=== PATIENT | male | born 1950 | race Asian ===

== ENCOUNTER 2022-04-22 22:10 | Inpatient (IN) | payer MEDICARE, OTHER ==
[~2022-04-22] VITALS: Ht 157.5 cm; Wt 62.1 kg
[2022-04-22 23:38] LABS: HEMATOCRIT 34.6 % (36.7-47.1); MEAN CORPUSCULAR HEMOGLOBIN 30.8 uug (23.8-33.4); MEAN CORPUSCULAR VOLUME 89.8 fL (73.0-96.2); PLATELET COUNT (AUTO) 96 K/uL (152-348)
[2022-04-22 23:44] LABS: CARBON DIOXIDE 31 mmol/L (21-32); CHLORIDE 103 mmol/L (98-107); CREATININE 1.2 mg/dL (0.6-1.3); GLUCOSE 96 mg/dL (74-106); POTASSIUM 4.1 mmol/L (3.5-5.1); UREA NITROGEN, BLOOD 14 mg/dL (7-18)
[2022-04-23] MEDS ORDERED: BISA10SU61 RC
[2022-04-23] MEDS ORDERED: NA P133E RC
[2022-04-23] MEDS ORDERED: SENN-261 PO
[2022-04-23] MEDS ORDERED: GABA-532 PO
[2022-04-23] MEDS ORDERED: LEVE100S PO
[2022-04-23] MEDS ORDERED: MAG-151 PO
[2022-04-23] MEDS ORDERED: CLON0.1T PO
[2022-04-23] MEDS ORDERED: DEXT15DR6 OP
[2022-04-23] MEDS ORDERED: TRAM50TA2 PO
[2022-04-23] MEDS ORDERED: DOXA4TAB3 PO
[2022-04-23] MEDS ORDERED: CARV3.122 PO
[2022-04-23] MEDS ORDERED: ESCI5TAB PO
[2022-04-23] MEDS ORDERED: MULT-213 PO
[2022-04-23] MEDS ORDERED: OXYB5TAB16 PO
[2022-04-23] MEDS ORDERED: QUET25TA PO
[2022-04-23] MEDS ORDERED: PRAV20TA4 PO
[2022-04-23] MEDS ORDERED: FINA5TAB11 PO
[2022-04-23] MEDS ORDERED: OLAN2.5T3 PO
[2022-04-23] MEDS ORDERED: VALP250S3 PO
[2022-04-23] MEDS ORDERED: PANT40TA49 PO
[2022-04-23] MEDS ORDERED: ACET-2154 PO
[2022-04-23] MEDS ORDERED: AMLO-212 PO
[2022-04-23] MEDS ORDERED: MELA3TAB41 PO
[2022-04-23] MEDS ORDERED: MELO-105 PO
--- NOTE | 2022-04-23 00:15 | NUR ---
PATIENT HAS BEEN MEDICALLY CLEARED BY DR BENNETT
--- NOTE | 2022-04-23 00:26 | NUR ---
CALLED DIRECTOR COUNSELING BUREAU ART FOR PSYCH EVAL
--- NOTE | 2022-04-23 02:06 | NUR ---
Report given to U
--- NOTE | 2022-04-23 02:51 | NUR ---
Transferred patient to MHU via stretcher PORSHA Sprague made aware of patient's arrival.
[2022-04-23 03:00] VITALS: BP 129/81
--- NOTE | 2022-04-23 03:42 | NUR ---
Admission Notes: Received 72 y/o male patient via ER staff on gurney @ 0245 hours. Pt was admitted on a 5150 d/t being gravely disabled. Pt came from [facility] d/t increased agitation, paranoia, and non-compliant behavior. Upon face to face assessment, pt is AOx2, somewhat confused, mainly speaks Spanish, and overall compliant. Translation is needed. Pt is x1 assist with ambulation and ADL's. Pt was given snacks and able to feed himself. Pt was oriented to the unit, was given his advisement, placed in his patient's handbook, left on his bedside table. Pt will be followed via Zandra and Elsy.
[2022-04-23] MEDS ORDERED: MAG HYDROX/AL HYDROX/SIMETH 30 ML LIQUID UDC PO PRN (03:45)
[2022-04-23] MEDS ORDERED: MAGNESIUM HYDROXIDE 30 ML LIQUID UDC PO PRN (03:45)
[2022-04-23 07:30] VITALS: BP 136/77
[2022-04-23] MEDS: GABAPENTIN 300 MG CAPSULE PO SCH ×3 (09:18→17:32)
[2022-04-23] MEDS: OLANZAPINE ZYDIS 5 MG TAB.RAPDIS PO SCH ×2 (09:18→20:51)
[2022-04-23] MEDS: DIVALPROEX SPRINKLE 125 MG CAP.SPRINK PO SCH ×3 (09:26→17:32)
[2022-04-23] MEDS ORDERED: [UNRECOGNIZED DRUG - OTHER] PO PRN (11:30)
[2022-04-23] MEDS ORDERED: CLONIDINE HCL 0.1 MG TABLET PO PRN (11:30)
[2022-04-23] MEDS ORDERED: SIMETHICONE PO PRN (11:30)
[2022-04-23] MEDS ORDERED: MAGNESIUM HYDROXIDE PO PRN (11:30)
[2022-04-23] MEDS ORDERED: ALUMINUM HYDROXIDE PO PRN (11:30)
[2022-04-23] MEDS ORDERED: BISACODYL 10 MG SUPP.RECT RC PRN (11:30)
[2022-04-23] MEDS ORDERED: VALPROIC ACID 250 MG/5 ML LIQUID UDC PO SCH (11:43)
[2022-04-23] MEDS: levETIRAcetam 500 MG TABLET PO SCH ×2 (12:42→20:52)
[2022-04-23] MEDS: AMLODIPINE 5 MG TABLET PO SCH ×2 (12:42→20:51)
[2022-04-23] MEDS ORDERED: GABAPENTIN 100 MG CAPSULE PO SCH (13:00)
[2022-04-23 16:00] VITALS: BP 132/79
[2022-04-23] MEDS ORDERED: levETIRAcetam 500 MG/5 ML LIQUID UDC PO SCH (17:00)
[2022-04-23] MEDS: POLYVINYL ALCOHOL OPHT DROPS 15 ML BOTTLE EACHEYE SCH ×2 (17:00→17:33)
[2022-04-23] MEDS ORDERED: VALPROATE SODIUM PO SCH (17:00)
[2022-04-23] MEDS: CARVEDILOL 3.125 MG TABLET PO SCH (17:33)
--- NOTE | 2022-04-23 20:30 | NUR ---
RECEIVED PATIENT IN HIS ROOM IN BED. HE IS NOTED SLEEPING BUT EASILY AROUSABLE. PATIENT IS A/O X 1/ HE IS CALM UPON APPROACHED. HE IS A POOR HISTORIAN. HE APPEARS DEPRESSED. HE IS ISOLATIVE AND WITHDRAWN BUT HE DENIED SI/HI/AH/VH. ALL HIS NEEDS ARE MET. HE IS ABLE TO AMBULATE WITH THE AID OF A FWW. PATIENT IS REASSURED FOR HER SAFETY. SAFETY AND FALL PRECAUTIONS ARE IN PLACE, BED ALARM ON. HIS V/S ARE STABLE. HE WAS GIVEN PO FLUIDS AND SNACKS. WILL CONTINUE TO MONITOR.
[2022-04-23 20:36] VITALS: BP 122/74
[2022-04-23] MEDS: MELATONIN 3 MG TABLET PO SCH (20:51)
[2022-04-23] MEDS: SENNOSIDES 1 TABLET PO SCH (20:52)
[2022-04-23] MEDS: ATORVASTATIN 10 MG TABLET PO SCH (20:52)
[2022-04-23] MEDS: OXYBUTYNIN CHLORIDE 5 MG TABLET PO SCH (20:52)
[2022-04-23] MEDS: DOXAZOSIN 2 MG TABLET PO SCH (20:53)
[2022-04-23] MEDS ORDERED: MELATONIN 3 MG TABLET PO SCH (21:00)
[2022-04-24] MEDS: PANTOPRAZOLE SODIUM 40 MG TABLET.DR PO SCH (06:49)
[2022-04-24 07:30] VITALS: BP 109/65
[2022-04-24 07:34] LABS: HEMATOCRIT 33.6 % (36.7-47.1); MEAN CORPUSCULAR VOLUME 89.8 fL (73.0-96.2); PLATELET COUNT (AUTO) 96 K/uL (152-348)
[2022-04-24 07:47] LABS: CREATININE 1.3 mg/dL (0.6-1.3); MAGNESIUM 2.3 mg/dL (1.8-2.4); POTASSIUM 4.4 mmol/L (3.5-5.1)
[2022-04-24 07:55] LABS: THYROID STIMULATING HORMONE 2.057 mIU/mL (0.358-3.740)
[2022-04-24] MEDS: CARVEDILOL 3.125 MG TABLET PO SCH ×2 (08:00→17:39)
[2022-04-24] MEDS ORDERED: Medication Not On Formulary EA (Multivitamins W-Minerals (Daily Multivitamin-Minerals) 1 PO SCH (09:00)
[2022-04-24] MEDS ORDERED: MELOXICAM 7.5 MG TABLET PO SCH (09:00)
[2022-04-24] MEDS: POLYVINYL ALCOHOL OPHT DROPS 15 ML BOTTLE EACHEYE SCH ×3 (09:16→17:37)
[2022-04-24] MEDS: levETIRAcetam 500 MG TABLET PO SCH ×2 (09:17→20:14)
[2022-04-24] MEDS: DIVALPROEX SPRINKLE 125 MG CAP.SPRINK PO SCH ×3 (09:17→17:38)
[2022-04-24] MEDS: GABAPENTIN 300 MG CAPSULE PO SCH ×3 (09:17→17:38)
[2022-04-24] MEDS: AMLODIPINE 5 MG TABLET PO SCH ×2 (09:18→21:00)
[2022-04-24] MEDS: MULTIVIT, IRON, MIN NO. 8, FA TABLET PO SCH (09:18)
[2022-04-24] MEDS: FINASTERIDE 5 MG TABLET PO SCH (09:18)
[2022-04-24] MEDS: OLANZAPINE ZYDIS 5 MG TAB.RAPDIS PO SCH ×2 (09:18→20:14)
--- NOTE | 2022-04-24 12:27 | NUR ---
JESUS Initial Discharge Note: Pt currently resides at [facility] nursing [facility] located at [address] [place] [id number] ([phone]). JESUS spoke with Lin in admissions at the facility who stated pt is welcome back upon discharge. JESUS will contact pt's daughter, Kristen to discuss pt's discharge plan. JESUS will continue to work with pt, family and MD to ensure a safe and proper discharge plan.
--- NOTE | 2022-04-24 14:23 | NUR ---
JESUS Family Contact: JESUS spoke with pt's daughter, Kristen ([phone]) regarding pt's treatment and discharge plan to return to [facility] [phone] EXT: (202 for admissions) upon discharge. Kristen is aware and agreeable with the discharge plan. Kristen stated the pt does not have a DPOA or conservator. JESUS provided Kristen with this process description writer's office number for further questions as needed. Kristen was grateful.
[2022-04-24 16:00] VITALS: BP 105/67
--- NOTE | 2022-04-24 16:22 | NUR ---
SHIFT NOTE: RECEIVED REPORT FROM AM NURSE PT IS ALERT AND ORIENTED X 2 PT IS ISOLATIVE IN HIS ROOM NO SIGNS OF RESPIRATORY DISTRESS NOTED. PT IS ISOLATIVE IN ROOM EAT PT ATE 100 PERCENT OF BREAKFAST AND LUNCH. PT UNDERSTANDS SAMI ABLE TO RESPOND BACK IN SIMPLY WORDS. PT IS COMPLIANT WITH ALL OF MEDICATIONS. PT USE HIS FRONT PEGUERO TO BATHROOM SAFETY PRECAUTIONS MAINTAINED. WILL CONTINUE TO MONITOR.
[2022-04-24] MEDS: SENNOSIDES 1 TABLET PO SCH (20:13)
[2022-04-24] MEDS: ATORVASTATIN 10 MG TABLET PO SCH (20:13)
[2022-04-24] MEDS: OXYBUTYNIN CHLORIDE 5 MG TABLET PO SCH (20:14)
[2022-04-24 20:54] VITALS: BP 108/69
[2022-04-24] MEDS: MELATONIN 3 MG TABLET PO SCH (21:00)
[2022-04-24] MEDS: DOXAZOSIN 2 MG TABLET PO SCH (21:00)
[2022-04-25 07:30] VITALS: BP 110/68
[2022-04-25] MEDS: PANTOPRAZOLE SODIUM 40 MG TABLET.DR PO SCH (07:36)
[2022-04-25] MEDS: POLYVINYL ALCOHOL OPHT DROPS 15 ML BOTTLE EACHEYE SCH ×3 (09:05→16:48)
[2022-04-25] MEDS: AMLODIPINE 5 MG TABLET PO SCH ×2 (09:06→20:41)
[2022-04-25] MEDS: GABAPENTIN 300 MG CAPSULE PO SCH ×3 (09:06→16:48)
[2022-04-25] MEDS: MULTIVIT, IRON, MIN NO. 8, FA TABLET PO SCH (09:06)
[2022-04-25] MEDS: FINASTERIDE 5 MG TABLET PO SCH (09:06)
[2022-04-25] MEDS: levETIRAcetam 500 MG TABLET PO SCH ×2 (09:07→20:38)
[2022-04-25] MEDS: OLANZAPINE ZYDIS 5 MG TAB.RAPDIS PO SCH ×2 (09:07→20:38)
[2022-04-25] MEDS: DIVALPROEX SPRINKLE 125 MG CAP.SPRINK PO SCH ×3 (09:07→16:49)
[2022-04-25] MEDS: CARVEDILOL 3.125 MG TABLET PO SCH ×2 (09:08→17:07)
[2022-04-25 16:00] VITALS: BP 116/75
--- NOTE | 2022-04-25 16:23 | NUR ---
Firearms Report: Breaker Machine Tender completed and submitted a [employer] firearms report for 5150 grave disability certifications. A copy of report has been placed in patient chart.
[2022-04-25] MEDS: DOXAZOSIN 2 MG TABLET PO SCH (17:00)
[2022-04-25 20:20] VITALS: BP 120/81
[2022-04-25] MEDS: SENNOSIDES 1 TABLET PO SCH (20:38)
[2022-04-25] MEDS: OXYBUTYNIN CHLORIDE 5 MG TABLET PO SCH (20:38)
[2022-04-25] MEDS: ATORVASTATIN 10 MG TABLET PO SCH (20:39)
[2022-04-25] MEDS: MELATONIN 3 MG TABLET PO SCH (20:40)
[2022-04-26] MEDS: PANTOPRAZOLE SODIUM 40 MG TABLET.DR PO SCH (06:03)
--- NOTE | 2022-04-26 06:21 | NUR ---
Gps: Remain calm and cooperative. compliant with meds. slept 6.30 hrs through the night. resting in bed comfortably. continue plan of care.
[2022-04-26 08:05] VITALS: BP 109/73
[2022-04-26] MEDS: DIVALPROEX SPRINKLE 125 MG CAP.SPRINK PO SCH ×3 (08:35→16:20)
[2022-04-26] MEDS: AMLODIPINE 5 MG TABLET PO SCH ×2 (08:35→21:25)
[2022-04-26] MEDS: GABAPENTIN 300 MG CAPSULE PO SCH ×3 (08:36→16:20)
[2022-04-26] MEDS: FINASTERIDE 5 MG TABLET PO SCH (08:36)
[2022-04-26] MEDS: levETIRAcetam 500 MG TABLET PO SCH ×2 (08:36→21:20)
[2022-04-26] MEDS: MULTIVIT, IRON, MIN NO. 8, FA TABLET PO SCH (08:36)
[2022-04-26] MEDS: CARVEDILOL 3.125 MG TABLET PO SCH ×2 (08:36→17:04)
[2022-04-26] MEDS: OLANZAPINE ZYDIS 5 MG TAB.RAPDIS PO SCH ×2 (08:36→21:20)
[2022-04-26] MEDS: POLYVINYL ALCOHOL OPHT DROPS 15 ML BOTTLE EACHEYE SCH ×3 (08:37→16:21)
--- NOTE | 2022-04-26 13:50 | NUR ---
GPS: Nursing Notes: Thought Disorder: Patient is awake and responding to his name, A/Ox2, needs assistance with ADL's, ambulatory with fww, impaired judgment, confused, gets easily irritable when redirected at times, interactive with staff, isolative and withdrawn in her room, unable to formulate a viable plan for self care, no aggressive behavior noted, continue to be compliant with his medications, continue to monitor for safety, continue with treatment plan.
[2022-04-26 16:26] VITALS: BP 111/66
[2022-04-26 20:00] VITALS: BP 118/74
[2022-04-26] MEDS: DOXAZOSIN 2 MG TABLET PO SCH (21:19)
[2022-04-26] MEDS: SENNOSIDES 1 TABLET PO SCH (21:20)
[2022-04-26] MEDS: MELATONIN 3 MG TABLET PO SCH (21:21)
[2022-04-26] MEDS: OXYBUTYNIN CHLORIDE 5 MG TABLET PO SCH (21:22)
[2022-04-26] MEDS: ATORVASTATIN 10 MG TABLET PO SCH (21:26)
--- NOTE | 2022-04-26 21:30 | NUR ---
RECEIVED PATIENT IN HIS ROOM IN BED. HE IS NOTED SLEEPING BUT EASILY AROUSABLE. PATIENT IS A/O X 1 HE IS CALM AND PLEASANT UPON APPROACHED. HE IS ABLE TO AMBULATE WITH THE AID OF A FWW. PATIENT IS THAI AND HIS IRISH IS LIMITED. PATIENT CONTINUE ISOLATIVE BUT HE DENIED SI/HI/VH/AH. PATIENT IS COMPLIANT WITH MEDICATION REGIMENT DIET AND CARE AT THIS TIME. PATIENT IS REASSURED FOR HIS SAFETY. SAFETY AND FALL PRECAUTIONS ARE IN PLACE. HIS V/S ARE STABLE. HE WAS GIVEN PO FLUIDS AND SNACKS. ALL HIS NEEDS ARE MET. WILL CONTINUE TO MONITOR.
[2022-04-27] MEDS: PANTOPRAZOLE SODIUM 40 MG TABLET.DR PO SCH (06:17)
[2022-04-27 07:57] VITALS: BP 129/76
[2022-04-27] MEDS: levETIRAcetam 500 MG TABLET PO SCH ×2 (08:29→20:40)
[2022-04-27] MEDS: DIVALPROEX SPRINKLE 125 MG CAP.SPRINK PO SCH ×3 (08:29→16:33)
[2022-04-27] MEDS: OLANZAPINE ZYDIS 5 MG TAB.RAPDIS PO SCH ×2 (08:29→20:40)
[2022-04-27] MEDS: MULTIVIT, IRON, MIN NO. 8, FA TABLET PO SCH (08:29)
[2022-04-27] MEDS: FINASTERIDE 5 MG TABLET PO SCH (08:29)
[2022-04-27] MEDS: GABAPENTIN 300 MG CAPSULE PO SCH ×3 (08:29→16:33)
[2022-04-27] MEDS: AMLODIPINE 5 MG TABLET PO SCH ×2 (08:31→20:39)
[2022-04-27] MEDS: CARVEDILOL 3.125 MG TABLET PO SCH ×2 (08:31→17:01)
[2022-04-27] MEDS: POLYVINYL ALCOHOL OPHT DROPS 15 ML BOTTLE EACHEYE SCH ×3 (08:32→16:33)
--- NOTE | 2022-04-27 11:40 | NUR ---
GPS: Nursing Notes: Thought Disorder: Patient is awake and responding to his name, impaired judgment, poor insight, A/Ox1, redirected and reoriented during shift, ambulatory with fww, on fall precautions, needs assistance with ADL's, forgetful, disoriented, unkempt appearance, unable to formulate a viable plan for self care, following staff directions, no aggressive behavior noted, continue to monitor for safety, continue with treatment plan.
[2022-04-27 16:41] VITALS: BP 122/74
[2022-04-27 20:08] VITALS: BP 137/81
[2022-04-27] MEDS: MELATONIN 3 MG TABLET PO SCH (20:39)
[2022-04-27] MEDS: ATORVASTATIN 10 MG TABLET PO SCH (20:39)
[2022-04-27] MEDS: OXYBUTYNIN CHLORIDE 5 MG TABLET PO SCH (20:40)
[2022-04-27] MEDS: SENNOSIDES 1 TABLET PO SCH (20:40)
[2022-04-27] MEDS: DOXAZOSIN 2 MG TABLET PO SCH (20:41)
--- NOTE | 2022-04-27 21:30 | NUR ---
RECEIVED PATIENT IN HIS ROOM IN BED. HE IS NOTED AWAKE. HE IS IS A/O X 1 TO 2 HE IS CALM AND PLEASANT UPON APPROACHED. HE IS ABLE TO AMBULATE WITH THE AID OF A FWW. HE IS LESS ISOLATIVE LESS WITHDRAWN HE WAS OBSERVED GOING TO THE DAY ROOM AND HAVE SOME SNACKS AND WATCH TV. PATIENT IS SLOVAK SPEAKER AND HE IS ABLE TO SPEAK AND UNDERSTAND BASIC SAUDI ARABIAN. HE DENIED SI/HI/VH/AH. PATIENT IS COMPLIANT WITH MEDICATION REGIMENT DIET AND CARE AT THIS TIME. HE WAS OFFERED A SHOWER AND HE SAID "YES". SHOWER WAS PROVIDED. PATIENT IS REASSURED FOR HIS SAFETY. SAFETY AND FALL PRECAUTIONS ARE IN PLACE. HIS V/S ARE STABLE. HE WAS GIVEN PO FLUIDS AND SNACKS. ALL HIS NEEDS ARE MET. WILL CONTINUE TO MONITOR
[2022-04-28] MEDS: PANTOPRAZOLE SODIUM 40 MG TABLET.DR PO SCH (07:02)
[2022-04-28 08:11] VITALS: BP 123/74
[2022-04-28] MEDS: MULTIVIT, IRON, MIN NO. 8, FA TABLET PO SCH (08:16)
[2022-04-28] MEDS: levETIRAcetam 500 MG TABLET PO SCH ×2 (08:16→20:47)
[2022-04-28] MEDS: DIVALPROEX SPRINKLE 125 MG CAP.SPRINK PO SCH ×3 (08:16→17:14)
[2022-04-28] MEDS: FINASTERIDE 5 MG TABLET PO SCH (08:16)
[2022-04-28] MEDS: GABAPENTIN 300 MG CAPSULE PO SCH ×3 (08:16→17:15)
[2022-04-28] MEDS: AMLODIPINE 5 MG TABLET PO SCH ×2 (08:16→20:48)
[2022-04-28] MEDS: OLANZAPINE ZYDIS 5 MG TAB.RAPDIS PO SCH ×2 (08:16→20:47)
[2022-04-28] MEDS: POLYVINYL ALCOHOL OPHT DROPS 15 ML BOTTLE EACHEYE SCH ×3 (08:17→17:16)
[2022-04-28] MEDS: CARVEDILOL 3.125 MG TABLET PO SCH ×2 (08:17→17:15)
[2022-04-28] MEDS: ESCITALOPRAM OXALATE 10 MG TABLET PO SCH (09:07)
--- NOTE | 2022-04-28 16:01 | NUR ---
GPS: Nursing Notes: Thought Disorder: Patient is awake and responding to his name, A/Ox2, forgetful at times, impaired judgment, poor insight, resistant with nursing care at times, needs prompting to participate in therapeutic groups, ambulatory with fww, unable to formulate a viable plan for self care, unkempt appearance, continue to monitor for safety, continue with treatment plan.
[2022-04-28 16:11] VITALS: BP 108/71
[2022-04-28 19:53] VITALS: BP 123/74
[2022-04-28] MEDS: SENNOSIDES 1 TABLET PO SCH (20:46)
[2022-04-28] MEDS: OXYBUTYNIN CHLORIDE 5 MG TABLET PO SCH (20:47)
[2022-04-28] MEDS: DOXAZOSIN 2 MG TABLET PO SCH (20:47)
[2022-04-28] MEDS: ATORVASTATIN 10 MG TABLET PO SCH (20:48)
[2022-04-28] MEDS: MELATONIN 3 MG TABLET PO SCH (20:48)
[2022-04-29] MEDS: PANTOPRAZOLE SODIUM 40 MG TABLET.DR PO SCH (06:20)
[2022-04-29 08:00] VITALS: BP 125/55
[2022-04-29] MEDS: GABAPENTIN 300 MG CAPSULE PO SCH ×3 (09:53→17:01)
[2022-04-29] MEDS: FINASTERIDE 5 MG TABLET PO SCH (09:53)
[2022-04-29] MEDS: OLANZAPINE ZYDIS 5 MG TAB.RAPDIS PO SCH ×2 (09:54→20:43)
[2022-04-29] MEDS: MULTIVIT, IRON, MIN NO. 8, FA TABLET PO SCH (09:54)
[2022-04-29] MEDS: CARVEDILOL 3.125 MG TABLET PO SCH ×2 (09:54→17:04)
[2022-04-29] MEDS: levETIRAcetam 500 MG TABLET PO SCH ×2 (09:55→20:45)
[2022-04-29] MEDS: DIVALPROEX SPRINKLE 125 MG CAP.SPRINK PO SCH ×3 (09:55→17:01)
[2022-04-29] MEDS: POLYVINYL ALCOHOL OPHT DROPS 15 ML BOTTLE EACHEYE SCH ×3 (09:57→17:01)
[2022-04-29] MEDS: ESCITALOPRAM OXALATE 10 MG TABLET PO SCH (09:57)
[2022-04-29] MEDS: AMLODIPINE 5 MG TABLET PO SCH ×2 (09:58→20:45)
--- NOTE | 2022-04-29 14:31 | NUR ---
GPS: Nursing Notes: Thought Disorder: Patient is awake and responding to his name, A/Ox2, needs prompting to participate in therapeutic groups, compliant with his medications, depressed mood and blunted affect, cooperative with nursing care, no aggressive behavior noted, forgetful at times, ambulatory with fww, unable to formulate a viable plan for self care, unkempt appearance, continue to monitor for safety, continue with treatment plan.
[2022-04-29 16:06] VITALS: BP 111/67
[2022-04-29 20:04] VITALS: BP 120/70
[2022-04-29] MEDS: DOXAZOSIN 2 MG TABLET PO SCH (20:44)
[2022-04-29] MEDS: SENNOSIDES 1 TABLET PO SCH (20:44)
[2022-04-29] MEDS: MELATONIN 3 MG TABLET PO SCH (20:44)
[2022-04-29] MEDS: OXYBUTYNIN CHLORIDE 5 MG TABLET PO SCH (20:45)
[2022-04-29] MEDS: ATORVASTATIN 10 MG TABLET PO SCH (20:45)
[2022-04-30] MEDS: PANTOPRAZOLE SODIUM 40 MG TABLET.DR PO SCH (06:19)
--- NOTE | 2022-04-30 06:20 | NUR ---
Patient slept 8.00 hours last night. No changes, no aggressive behavior noted. Anxious at the start of the shift. Medication compliant. Safety Stratiges remain in place. Continuing to provide assistance, reorientation and reassurance when needed.
[2022-04-30 07:30] VITALS: BP 119/75
[2022-04-30] MEDS: MULTIVIT, IRON, MIN NO. 8, FA TABLET PO SCH (09:12)
[2022-04-30] MEDS: OLANZAPINE ZYDIS 5 MG TAB.RAPDIS PO SCH ×2 (09:12→20:55)
[2022-04-30] MEDS: GABAPENTIN 300 MG CAPSULE PO SCH ×3 (09:13→17:58)
[2022-04-30] MEDS: levETIRAcetam 500 MG TABLET PO SCH ×2 (09:13→20:55)
[2022-04-30] MEDS: ESCITALOPRAM OXALATE 10 MG TABLET PO SCH (09:13)
[2022-04-30] MEDS: DIVALPROEX SPRINKLE 125 MG CAP.SPRINK PO SCH ×3 (09:13→17:59)
[2022-04-30] MEDS: CARVEDILOL 3.125 MG TABLET PO SCH ×2 (09:14→17:59)
[2022-04-30] MEDS: FINASTERIDE 5 MG TABLET PO SCH (09:14)
[2022-04-30] MEDS: AMLODIPINE 5 MG TABLET PO SCH ×2 (09:14→20:56)
[2022-04-30] MEDS: POLYVINYL ALCOHOL OPHT DROPS 15 ML BOTTLE EACHEYE SCH ×3 (09:15→17:59)
[2022-04-30 16:00] VITALS: BP 100/70
--- NOTE | 2022-04-30 18:38 | NUR ---
Pt is calm on approach, able to state basic needs. pt frequently uses the phone. No agitation, no inappropriate behavior on this shift. Pt is able to follow directions. pt is compliant with medications. No aggressive behavior.
[2022-04-30 20:19] VITALS: BP 129/72
[2022-04-30] MEDS: OXYBUTYNIN CHLORIDE 5 MG TABLET PO SCH (20:55)
[2022-04-30] MEDS: SENNOSIDES 1 TABLET PO SCH (20:55)
[2022-04-30] MEDS: DOXAZOSIN 2 MG TABLET PO SCH (20:55)
[2022-04-30] MEDS: MELATONIN 3 MG TABLET PO SCH (20:56)
[2022-04-30] MEDS: ATORVASTATIN 10 MG TABLET PO SCH (20:56)
--- NOTE | 2022-05-01 06:59 | NUR ---
Patient slept for approx. 6.15 hr through the night. he is able to comply with all his medication regiment diet and plan of care. will continue to monitor.
[2022-05-01] MEDS: PANTOPRAZOLE SODIUM 40 MG TABLET.DR PO SCH (07:26)
[2022-05-01 07:30] VITALS: BP 113/64
[2022-05-01] MEDS: DIVALPROEX SPRINKLE 125 MG CAP.SPRINK PO SCH ×3 (08:51→17:36)
[2022-05-01] MEDS: levETIRAcetam 500 MG TABLET PO SCH ×2 (08:52→21:57)
[2022-05-01] MEDS: MULTIVIT, IRON, MIN NO. 8, FA TABLET PO SCH (08:52)
[2022-05-01] MEDS: OLANZAPINE ZYDIS 5 MG TAB.RAPDIS PO SCH ×2 (08:52→21:52)
[2022-05-01] MEDS: GABAPENTIN 300 MG CAPSULE PO SCH ×3 (08:52→17:37)
[2022-05-01] MEDS: CARVEDILOL 3.125 MG TABLET PO SCH ×2 (08:53→17:37)
[2022-05-01] MEDS: ESCITALOPRAM OXALATE 10 MG TABLET PO SCH (08:53)
[2022-05-01] MEDS: FINASTERIDE 5 MG TABLET PO SCH (08:53)
[2022-05-01] MEDS: AMLODIPINE 5 MG TABLET PO SCH ×2 (08:54→21:52)
[2022-05-01] MEDS: POLYVINYL ALCOHOL OPHT DROPS 15 ML BOTTLE EACHEYE SCH ×3 (09:00→17:35)
[2022-05-01 16:00] VITALS: BP 138/81
--- NOTE | 2022-05-01 16:30 | NUR ---
Received Patient in room siting in bed, A/O X2 .Patient is compliant with medications and and nursing care.Patient stays in his room for most of the day but after lunch comes to the nursing station every 30 minutes to use the phone to call his daughter.Patient is ambulatory with a walker.Patient is Malay speaking but can communicate basic needs.Patient went outside to [facility] for group activity.
[2022-05-01] MEDS: ACETAMINOPHEN 325 MG TABLET PO PRN (17:38)
--- NOTE | 2022-05-01 18:01 | NUR ---
Received a call from pt's daughter stating that pt called her and told her he sustained an unwitnessed fall and hit his head. Pt has been assessed and no apparent trauma noted throughout head. No redness, bruising, abrasions noted at this time. V/S stable. Stated he has mild pain to head, and Tylenol was administered. Pt bed alarm is and was on, and pt is attended to at all times by staff when he gets up. Pt cannot provide any further details other than he fell and he hit his head. Prior to pt's fall claim, he was assisted to the bathroom by the LEAD PONY RIDER and assisted pt back to bed. Pt then got up from bed, and requested the use of the telephone, where he apparently called his daughter to tell her that he sustained a fall. Risk Management Consultant called and informed Dr. De Paz with no new orders. Called Dr. Harrison and notified with no new orders. Called houseman and notified. Pt appears to be in no acute distress at this time.
[2022-05-01 20:13] VITALS: BP 118/71
--- NOTE | 2022-05-01 20:30 | NUR ---
RECEIVED PATIENT IN HIS ROOM SITTING IN HIS BED. HE IS A/O X 1 TO 2 HE IS CALM, PLEASANT AND COOPERATIVE UPON APPROACHED. HE IS ABLE TO AMBULATE WITH THE AID OF A FWW. PATIENT WAS ADVISED TO ASK FO ASSISTANCE WHEN HE NEEDS TO USED THE RESTROOM AND TO AMBULATE. PATIENT IS REASSURED FOR HIS SAFETY. SAFETY AND FALL PRECAUTIONS ARE IN PLACE. BED ALARM ON WITH WHEELS LOCKED AND ROOM FREE FROM CLUTTER AND WELL LIGHT, AND CLOSE MONITORING. HIS V/S ARE STABLE. PATIENT IN NO DISTRESS. HE DENIED PAIN OR DISCOMFORT AT THIS TIME. HE WAS GIVEN PO FLUIDS AND SNACKS. ALL HIS NEEDS ARE MET. WILL CONTINUE TO MONITOR
[2022-05-01] MEDS: DOXAZOSIN 2 MG TABLET PO SCH (21:51)
[2022-05-01] MEDS: SENNOSIDES 1 TABLET PO SCH (21:51)
[2022-05-01] MEDS: OXYBUTYNIN CHLORIDE 5 MG TABLET PO SCH (21:51)
[2022-05-01] MEDS: ATORVASTATIN 10 MG TABLET PO SCH (21:51)
[2022-05-01] MEDS: MELATONIN 3 MG TABLET PO SCH (21:52)
[2022-05-02 07:30] VITALS: BP 118/73
[2022-05-02] MEDS: CARVEDILOL 3.125 MG TABLET PO SCH ×2 (08:43→17:37)
[2022-05-02] MEDS: DIVALPROEX SPRINKLE 125 MG CAP.SPRINK PO SCH ×3 (08:44→17:26)
[2022-05-02] MEDS: GABAPENTIN 300 MG CAPSULE PO SCH (08:45)
[2022-05-02] MEDS: FINASTERIDE 5 MG TABLET PO SCH (08:46)
[2022-05-02] MEDS: ESCITALOPRAM OXALATE 10 MG TABLET PO SCH (08:46)
[2022-05-02] MEDS: AMLODIPINE 5 MG TABLET PO SCH ×2 (08:46→19:57)
[2022-05-02] MEDS: MULTIVIT, IRON, MIN NO. 8, FA TABLET PO SCH (08:46)
[2022-05-02] MEDS: OLANZAPINE ZYDIS 5 MG TAB.RAPDIS PO SCH ×2 (08:47→19:53)
[2022-05-02] MEDS: POLYVINYL ALCOHOL OPHT DROPS 15 ML BOTTLE EACHEYE SCH ×3 (08:58→17:27)
[2022-05-02] MEDS: levETIRAcetam 500 MG TABLET PO SCH ×2 (09:09→19:53)
[2022-05-02] MEDS: PANTOPRAZOLE SODIUM 40 MG TABLET.DR PO SCH (09:14)
--- NOTE | 2022-05-02 12:55 | NUR ---
Gps/Hydroelectric Systems Technician- Patient had been in and out of the bathroom, safety reviewed, ambulates with FWW CGA, monitored needs, with bed alarm on when in bed. Attended group therapy, stayed in the dinning room during lunch. Compliant with meds. follows simple command in Maori
[2022-05-02 16:00] VITALS: BP 100/64
--- NOTE | 2022-05-02 18:35 | NUR ---
Gps/Fashion Marketer- As observed by the staff , patient threw self on the floor, putting his head down bending forward , upset that his daughter never answer the phone when he called her couple of times this pm..Reassured patient will help try calling her again at a later time .
[2022-05-02] MEDS: LORAZEPAM 0.5 MG TABLET PO PRN (19:53)
[2022-05-02] MEDS: SENNOSIDES 1 TABLET PO SCH (19:54)
[2022-05-02] MEDS: OXYBUTYNIN CHLORIDE 5 MG TABLET PO SCH (19:54)
[2022-05-02] MEDS: DOXAZOSIN 2 MG TABLET PO SCH (19:55)
[2022-05-02] MEDS: MELATONIN 3 MG TABLET PO SCH (19:57)
[2022-05-02] MEDS: ATORVASTATIN 10 MG TABLET PO SCH (19:57)
[2022-05-02 21:07] VITALS: BP 118/75
[2022-05-03] MEDS: ZOLPIDEM 5 MG TABLET PO PRN ×2 (00:36→21:16)
--- NOTE | 2022-05-03 01:32 | NUR ---
Patient has been up and down during the night. Walking back and forth to the day room. Multiple times, the patient needed to be redirected back to his room and bed. No aggressive behavior noted. Snack given patient ate 100%. Safety Stratiges remain in place . Redirection, reassurance and reorientation is provided as needed. Staff has been assisting patient with ADLs. Shower encouraged but patient refused last night. Will try again in the AM.
--- NOTE | 2022-05-03 04:56 | NUR ---
Patient continued to get out of bed, despite redirection, education and explanations. His gait is unsteady and he is not consistent with the FWW. A Shower was given and afterwards, the patient was put in the valente chair to prevent him from falling. The patient has been angry and combative with the staff. Yelling on and off, striking out at the nurses and banging on the table. PRN medications were given with no effect. Constant reorientation and reassurance during this shift. Patients behavior is loud and attention seeking, clearly confused. Safety Stratiges a priority at this time. Continuing to monitor for behavior escalation.
[2022-05-03] MEDS: PANTOPRAZOLE SODIUM 40 MG TABLET.DR PO SCH (05:32)
[2022-05-03] MEDS: LORAZEPAM 0.5 MG TABLET PO PRN ×4 (05:32→20:14)
[2022-05-03] MEDS: levETIRAcetam 500 MG TABLET PO SCH ×2 (08:59→20:13)
[2022-05-03] MEDS: FINASTERIDE 5 MG TABLET PO SCH (09:00)
[2022-05-03] MEDS: DIVALPROEX SPRINKLE 125 MG CAP.SPRINK PO SCH ×3 (09:01→16:47)
[2022-05-03] MEDS: CARVEDILOL 3.125 MG TABLET PO SCH ×2 (09:02→17:03)
[2022-05-03] MEDS: AMLODIPINE 5 MG TABLET PO SCH ×2 (09:02→20:15)
[2022-05-03] MEDS: MULTIVIT, IRON, MIN NO. 8, FA TABLET PO SCH (09:03)
[2022-05-03] MEDS: ESCITALOPRAM OXALATE 10 MG TABLET PO SCH (09:03)
[2022-05-03] MEDS: OLANZAPINE ZYDIS 5 MG TAB.RAPDIS PO SCH ×2 (09:06→20:15)
[2022-05-03] MEDS: POLYVINYL ALCOHOL OPHT DROPS 15 ML BOTTLE EACHEYE SCH ×3 (09:20→16:48)
--- NOTE | 2022-05-03 10:45 | NUR ---
Gps/Smelter Charger- Remains in her valente-chair , Sinhala speaking SN assisting patient to translate, oriented x 2. Patient angry, yelling, agitated, per combination man, patient wants to go to another Hospital in [place] Patient was able to take his routine am meds.
[2022-05-03] MEDS: ACETAMINOPHEN 325 MG TABLET PO PRN (13:59)
[2022-05-03 16:10] VITALS: BP 120/77
[2022-05-03] MEDS: OXYBUTYNIN CHLORIDE 5 MG TABLET PO SCH (20:13)
[2022-05-03] MEDS: SENNOSIDES 1 TABLET PO SCH (20:14)
[2022-05-03] MEDS: DOXAZOSIN 2 MG TABLET PO SCH (20:14)
[2022-05-03] MEDS: ATORVASTATIN 10 MG TABLET PO SCH (20:15)
[2022-05-03] MEDS: MELATONIN 3 MG TABLET PO SCH (20:16)
[2022-05-03 20:26] VITALS: BP 110/65
--- NOTE | 2022-05-04 04:21 | NUR ---
Patient was received in the valente-chair. Agitated, angry , yelling and combative with the staff providing care. Food given with medications. Eventually, patient was assisted to bed and fell asleep. Safety Stratiges remain in place. Continuing to monitor the patient for behavior escalation and confusion. Reassurance and reorientation ongoing .
[2022-05-04] MEDS: PANTOPRAZOLE SODIUM 40 MG TABLET.DR PO SCH (06:37)
[2022-05-04] MEDS: CARVEDILOL 3.125 MG TABLET PO SCH ×2 (08:00→17:19)
[2022-05-04 08:21] VITALS: BP 96/65
[2022-05-04] MEDS: AMLODIPINE 5 MG TABLET PO SCH ×2 (09:00→20:27)
[2022-05-04] MEDS: DIVALPROEX SPRINKLE 125 MG CAP.SPRINK PO SCH ×3 (09:32→17:15)
[2022-05-04] MEDS: levETIRAcetam 500 MG TABLET PO SCH ×2 (09:34→20:27)
[2022-05-04] MEDS: ESCITALOPRAM OXALATE 10 MG TABLET PO SCH (09:34)
[2022-05-04] MEDS: MULTIVIT, IRON, MIN NO. 8, FA TABLET PO SCH (09:35)
[2022-05-04] MEDS: OLANZAPINE ZYDIS 5 MG TAB.RAPDIS PO SCH ×2 (09:35→20:26)
[2022-05-04] MEDS: POLYVINYL ALCOHOL OPHT DROPS 15 ML BOTTLE EACHEYE SCH ×3 (09:36→17:15)
[2022-05-04] MEDS: FINASTERIDE 5 MG TABLET PO SCH (09:42)
--- NOTE | 2022-05-04 10:00 | NUR ---
Gps/Pin Feather Machine Operator- Had late breakfast , patient was asleep. Ambulated to the bathroom with FWW. continent of bladder, kept patient in his valente-chair, by the Nurses station for safety . Able to communicate his simple needs in simple Jordanian ,Continued compliance in taking his routine meds. Safety continue to emphasized , tends to slide from his valente-chair .
[2022-05-04] MEDS: LORAZEPAM 0.5 MG TABLET PO PRN ×2 (11:48→20:27)
[2022-05-04 16:20] VITALS: BP 110/58
[2022-05-04 19:58] VITALS: BP 121/75
[2022-05-04] MEDS: DOXAZOSIN 2 MG TABLET PO SCH (20:26)
[2022-05-04] MEDS: ATORVASTATIN 10 MG TABLET PO SCH (20:27)
[2022-05-04] MEDS: SENNOSIDES 1 TABLET PO SCH (20:27)
[2022-05-04] MEDS: OXYBUTYNIN CHLORIDE 5 MG TABLET PO SCH (20:28)
[2022-05-04] MEDS: MELATONIN 3 MG TABLET PO SCH (20:29)
--- NOTE | 2022-05-05 03:28 | NUR ---
Patient has been less confused this evening. Easily redirectable. He is ambulating with a walker and requires stand by assistance d/t unsteady gait and poor judgement. No overt aggression towards the staff providing care so far this shift. Safety Stratiges are in place. The patient remains medication compliant.
[2022-05-05] MEDS: PANTOPRAZOLE SODIUM 40 MG TABLET.DR PO SCH (06:03)
[2022-05-05 07:52] VITALS: BP 145/83
[2022-05-05] MEDS: MULTIVIT, IRON, MIN NO. 8, FA TABLET PO SCH (08:56)
[2022-05-05] MEDS: DIVALPROEX SPRINKLE 125 MG CAP.SPRINK PO SCH ×3 (08:56→16:18)
[2022-05-05] MEDS: FINASTERIDE 5 MG TABLET PO SCH (08:56)
[2022-05-05] MEDS: levETIRAcetam 500 MG TABLET PO SCH ×2 (08:56→21:00)
[2022-05-05] MEDS: AMLODIPINE 5 MG TABLET PO SCH ×2 (08:56→21:01)
[2022-05-05] MEDS: OLANZAPINE ZYDIS 5 MG TAB.RAPDIS PO SCH ×2 (08:56→20:58)
[2022-05-05] MEDS: CARVEDILOL 3.125 MG TABLET PO SCH ×2 (09:17→17:45)
[2022-05-05] MEDS: POLYVINYL ALCOHOL OPHT DROPS 15 ML BOTTLE EACHEYE SCH ×3 (09:17→16:19)
[2022-05-05] MEDS: ESCITALOPRAM OXALATE 10 MG TABLET PO SCH (09:58)
--- NOTE | 2022-05-05 14:02 | NUR ---
GPS: Nursing Notes: Thought Disorder: Patient is awake and responding to his name, disoriented to time, compliant with his medications, ambulatory with fww, on fall precautions, gets easily irritable when redirected, unkempt appearance, needs prompting to participate in therapeutic groups, assisted with ADL's, no aggressive behavior noted, forgetful at times, redirected during shift, unable to formulate a viable plan for self care, continue to monitor for safety, continue with treatment plan.
--- NOTE | 2022-05-05 14:16 | NUR ---
JESUS Family Contact: JESUS contacted pt's daughter, Kristen ([phone]) and was unable to leave a voicemail due to full mailbox.
--- NOTE | 2022-05-05 14:19 | NUR ---
JESUS Discharge Update: JESUS contacted [facility] [phone] EXT: (202 for admissions) F: [phone] and spoke with Kina in admissions who is aware and agreeable with pt's discharge clearance to return to [facility] on . JESUS contacted pt's daughter, Kristen to inform. However, JEUSS was unable to leave a voicemail due to full mailbox.
[2022-05-05 16:04] VITALS: BP 140/92
[2022-05-05 20:15] VITALS: BP 124/68
[2022-05-05] MEDS: DOXAZOSIN 2 MG TABLET PO SCH (21:00)
[2022-05-05] MEDS: OXYBUTYNIN CHLORIDE 5 MG TABLET PO SCH (21:00)
[2022-05-05] MEDS: ATORVASTATIN 10 MG TABLET PO SCH (21:00)
[2022-05-05] MEDS: SENNOSIDES 1 TABLET PO SCH (21:00)
[2022-05-05] MEDS: MELATONIN 3 MG TABLET PO SCH (21:01)
[2022-05-06] MEDS: PANTOPRAZOLE SODIUM 40 MG TABLET.DR PO SCH (06:20)
--- NOTE | 2022-05-06 06:58 | NUR ---
PATIENT SLEPT FOR 6.30 HRS THROUGH THE NIGHT/ HE IS A/O X 1 TO 2. HE IS ABLE TO AMBULATE WITH A FWW. PATIENT WAS OBSERVED TALKING TO HIMSELF AND RESPONDING TO INTERNAL STIMULI. HE IS CALM AND PLEASANT UPON APPROACHED. PATIENT HAD PO FLUIDS AND SNACKS. V/S STABLE, HE IS REASSURED FOR HIS SAFETY. SAFETY AND FALL PRECAUTIONS IN PLACE. WILL CONTINUE TO MONITOR
[2022-05-06 07:29] VITALS: BP 129/80
[2022-05-06] MEDS: FINASTERIDE 5 MG TABLET PO SCH (08:13)
[2022-05-06] MEDS: ESCITALOPRAM OXALATE 10 MG TABLET PO SCH (08:13)
[2022-05-06] MEDS: levETIRAcetam 500 MG TABLET PO SCH ×2 (08:13→21:25)
[2022-05-06] MEDS: MULTIVIT, IRON, MIN NO. 8, FA TABLET PO SCH (08:13)
[2022-05-06] MEDS: DIVALPROEX SPRINKLE 125 MG CAP.SPRINK PO SCH ×3 (08:13→16:37)
[2022-05-06] MEDS: OLANZAPINE ZYDIS 5 MG TAB.RAPDIS PO SCH ×2 (08:13→21:25)
[2022-05-06] MEDS: CARVEDILOL 3.125 MG TABLET PO SCH ×2 (08:13→17:14)
[2022-05-06] MEDS: AMLODIPINE 5 MG TABLET PO SCH ×2 (08:14→21:34)
[2022-05-06] MEDS: POLYVINYL ALCOHOL OPHT DROPS 15 ML BOTTLE EACHEYE SCH ×3 (08:14→16:37)
[2022-05-06] MEDS: ACETAMINOPHEN 325 MG TABLET PO PRN ×2 (08:23→23:33)
[2022-05-06] MEDS: OFLOXACIN 0.3% OTIC DROP 5 ML BOTTLE RIGHT EAR SCH ×2 (14:47→21:35)
--- NOTE | 2022-05-06 15:30 | NUR ---
GPS: Nursing Notes: Thought Disorder: Patient is awake and responding to his name, disoriented, impaired judgment, needs prompting to participate in therapeutic groups, no aggressive behavior noted, redirected during shift, continue to be compliant with medications, needs assistance with ADL's, unable to formulate a viable plan for self care, continue to monitor for safety, continue with treatment plan.
[2022-05-06 16:00] VITALS: BP 128/77
[2022-05-06 20:58] VITALS: BP 134/75
[2022-05-06] MEDS: OXYBUTYNIN CHLORIDE 5 MG TABLET PO SCH (21:25)
[2022-05-06] MEDS: LORAZEPAM 0.5 MG TABLET PO PRN (21:25)
[2022-05-06] MEDS: SENNOSIDES 1 TABLET PO SCH (21:25)
[2022-05-06] MEDS: MELATONIN 3 MG TABLET PO SCH (21:33)
[2022-05-06] MEDS: ATORVASTATIN 10 MG TABLET PO SCH (21:33)
[2022-05-06] MEDS: DOXAZOSIN 2 MG TABLET PO SCH (21:34)
[2022-05-06] MEDS: ZOLPIDEM 5 MG TABLET PO PRN (23:34)
[2022-05-07] MEDS: PANTOPRAZOLE SODIUM 40 MG TABLET.DR PO SCH (07:10)
[2022-05-07 07:30] VITALS: BP 113/76
[2022-05-07] MEDS: POLYVINYL ALCOHOL OPHT DROPS 15 ML BOTTLE EACHEYE SCH ×3 (08:52→17:03)
[2022-05-07] MEDS: CARVEDILOL 3.125 MG TABLET PO SCH ×2 (08:52→18:59)
[2022-05-07] MEDS: levETIRAcetam 500 MG TABLET PO SCH ×2 (08:53→21:19)
[2022-05-07] MEDS: DIVALPROEX SPRINKLE 125 MG CAP.SPRINK PO SCH ×3 (08:53→17:03)
[2022-05-07] MEDS: AMLODIPINE 5 MG TABLET PO SCH ×2 (08:54→21:15)
[2022-05-07] MEDS: ESCITALOPRAM OXALATE 10 MG TABLET PO SCH (08:54)
[2022-05-07] MEDS: FINASTERIDE 5 MG TABLET PO SCH (08:54)
[2022-05-07] MEDS: MULTIVIT, IRON, MIN NO. 8, FA TABLET PO SCH (08:54)
[2022-05-07] MEDS: OLANZAPINE ZYDIS 5 MG TAB.RAPDIS PO SCH ×2 (08:56→21:14)
[2022-05-07] MEDS: OFLOXACIN 0.3% OTIC DROP 5 ML BOTTLE RIGHT EAR SCH ×2 (08:58→21:17)
[2022-05-07 16:00] VITALS: BP 122/70
[2022-05-07] MEDS: ACETAMINOPHEN 325 MG TABLET PO PRN (17:07)
--- NOTE | 2022-05-07 19:26 | NUR ---
Pt has been coming to the nursing station multiple times, asking to call his daughter, Kristen. Pt had episode of being irritable when his daughter did not cotton picking machine operator. Pt is able to calm down. Pt is able to do adls independently.
[2022-05-07] MEDS: SENNOSIDES 1 TABLET PO SCH (21:14)
[2022-05-07] MEDS: OXYBUTYNIN CHLORIDE 5 MG TABLET PO SCH (21:15)
[2022-05-07] MEDS: DOXAZOSIN 2 MG TABLET PO SCH (21:15)
[2022-05-07] MEDS: ATORVASTATIN 10 MG TABLET PO SCH (21:15)
[2022-05-07] MEDS: MELATONIN 3 MG TABLET PO SCH (21:16)
[2022-05-07 21:25] VITALS: BP 106/75
[2022-05-08] MEDS: ZOLPIDEM 5 MG TABLET PO PRN (02:03)
[2022-05-08] MEDS: PANTOPRAZOLE SODIUM 40 MG TABLET.DR PO SCH (06:09)
[2022-05-08 07:30] VITALS: BP 119/73
[2022-05-08] MEDS: AMLODIPINE 5 MG TABLET PO SCH (09:00)
[2022-05-08] MEDS: OLANZAPINE ZYDIS 5 MG TAB.RAPDIS PO SCH (09:34)
[2022-05-08] MEDS: ESCITALOPRAM OXALATE 10 MG TABLET PO SCH (09:35)
[2022-05-08] MEDS: FINASTERIDE 5 MG TABLET PO SCH (09:35)
[2022-05-08] MEDS: levETIRAcetam 500 MG TABLET PO SCH (09:35)
[2022-05-08] MEDS: MULTIVIT, IRON, MIN NO. 8, FA TABLET PO SCH (09:36)
[2022-05-08] MEDS: DIVALPROEX SPRINKLE 125 MG CAP.SPRINK PO SCH ×2 (09:36→13:40)
[2022-05-08 09:38] VITALS: BP 119/73
[2022-05-08] MEDS: CARVEDILOL 3.125 MG TABLET PO SCH (09:38)
[2022-05-08] MEDS: POLYVINYL ALCOHOL OPHT DROPS 15 ML BOTTLE EACHEYE SCH ×2 (09:39→13:41)
[2022-05-08] MEDS: OFLOXACIN 0.3% OTIC DROP 5 ML BOTTLE RIGHT EAR SCH (09:39)
--- NOTE | 2022-05-08 09:52 | NUR ---
JESUS Family Contact: SW contacted pt's daughter, Kristen ([phone]) and was unable to leave a voicemail stating a final remainder that pt's discharge to return to [facility] [place] today at 1PM via ambulance due to full mailbox. Kristen was previously agreeable with the discharge plan.
--- NOTE | 2022-05-08 09:54 | NUR ---
JESUS Discharge Note: Pt will be discharged to [facility] residential facility located at [address] [place] [phone] ([phone]) EXT: 202 via ambulance transportation at 1PM. JESUS spoke with admin coordinator, Lin at the facility who states they are ready to accept the patient today. Pt is aware and agreeable with discharge plan. Pts daughter, Kristen ([phone]) is aware and agreeable with the discharge plan. Pt is alert and oriented x2, is unable to plan for self-care at this time. However, pt is willing to accept care at SNF. Pt denies any suicidal or homicidal ideation. Pt will follow-up at the facility with Psychiatrist, Dr. Castaneda and Keno Writer / Runner, Dr. Parmar. Pt presents with calm mood and congruent affect. PHARMACY: [facility] ([phone].
--- NOTE | 2022-05-08 15:29 | NUR ---
Received orders to discharge this patient to [facility] located at [address] [place] [phone] ([phone]) EXT: 202 via ambulance transportation at 3PM. Patient is agreeable with discharge plans, but refused signing discharge documentation. All belongings were returned to patient. Patient left the unit at 15:30. Patient denies SI/HI AH/VH, SOB, pain or any discomfort. Reassurance given. Fall and safety precautions implemented.
== END 2022-05-08 15:30 | DRG 885 ==
LOC: ER 22:17 → GPS 04-23 01:40
PROVIDERS: ADMIT Psychiatry & Neurology Psychiatry; ATTEND Nurse Practitioner Acute Care
DX: F20.0 Paranoid schizophrenia (principal); N17.0 Acute kidney failure with tubular necrosis; G93.41 Metabolic encephalopathy; F03.92 Unspecified dementia, unspecified severity, with psychotic disturbance; E78.5 Hyperlipidemia, unspecified; G40.909 Epilepsy, unspecified, not intractable, without status epilepticus; I10 Essential (primary) hypertension; N40.0 Benign prostatic hyperplasia without lower urinary tract symptoms; F29 Unspecified psychosis not due to a substance or known physiological condition; H66.90 Otitis media, unspecified, unspecified ear; K21.9 Gastro-esophageal reflux disease without esophagitis; M19.90 Unspecified osteoarthritis, unspecified site; E11.42 Type 2 diabetes mellitus with diabetic polyneuropathy; D64.9 Anemia, unspecified; Z20.822 Contact with and (suspected) exposure to COVID-19
CPT/HCPCS: 36415; 80164; 83735; 84100; 84443; 85025; A4663